=== PATIENT | female | born 1995 | race African-American/Black ===

== ENCOUNTER 2019-04-27 23:40 | Inpatient (IN) | payer BC ==
[~2019-04-27] VITALS: Ht 177.8 cm; Wt 191.9 kg
[2019-04-28] VITALS (8 sets, daily range): BP systolic 78–142; BP diastolic 46–86
--- NOTE | 2019-04-28 00:38 | NUR ---
US at bedside
[2019-04-28 02:51] LABS: HEMATOCRIT 35.2 % (37.0-47.0); HEMOGLOBIN 10.8 gm/dL (12.0-15.0); MCH 21.3 pg (26.0-34.0); MCHC 30.7 g/dL (28.0-37.0); MCV 69.4 fL (80.0-100.0); PLATELET COUNT 345 thou/uL (150-400); RBC 5.07 mil/uL (4.20-5.00); RDW 16.2 % (10.5-14.5); WBC 19.5 thou/uL (4.0-11.0)
[2019-04-28 02:58] LABS: CALCIUM 8.9 mg/dL (8.5-10.1); CREATININE 1.2 mg/dL (0.6-1.0); POTASSIUM 4.6 mmol/L (3.5-5.1)
[2019-04-28 03:59] LABS: ABSOLUTE NEUTROPHILS 18.5 thou/uL (1.4-8.2); ANISOCYTOSIS 2+; HYPOCHROMASIA 2+; MICROCYTES 2+; POLYCHROMASIA 1+
[2019-04-28 04:00] LABS: PLATELET ESTIMATE NORMAL
--- NOTE | 2019-04-28 06:26 | NUR ---
PATIENT IS A NEW ADMISSION TO THE UNIT THIS SHIFT. SHE ARRIVED VIA WHEELCHAIR FROM THE ER AND WAS ABLE TO AMBULATE TO RESTROOM AND BED WITHOUT INCIDENT. PATIENT IS COMPLETELY ORIENTED AND ABLE TO PARTICIPATE IN ADMISSION AND CALL APPROPRIATELY FOR NEEDS. NURSE TO COMPLETE ADMISSION AND INITIATE CARE PLAN.
--- NOTE | 2019-04-28 14:48 | NUR ---
PT ADMITTED RELATED TO RLE CELLULITIS/EDEMA. CM REVIEWED CHART AND SPOKE WITH CARE TEAM. CM MET WITH PT AND MOTHER AT BEDSIDE THIS DAY. PT IS A&O X4. CM ROLE INTRODUCED. PT INDICATED SHE LIVES IN A HOUSE WITH HER PARENTS WITH NO STEPS TO ENTER AND A COUPLET STEPS INSIDE. PT INDICATED SHE HAD BEEN INDEPENDENT WITH GAIT AND [employer]. PT INDICATED SHE HAS [employer] INSURANCE. CM INDICATED THAT WE HAVE PT LISTED PATIENT PAY. INSURANCE WAS RUN AND IT SHOWS PT INNACTIVE. CN NOTIFIED PT AND PROVIDED PRINT OUTS. CM TO FOLLOW INDICATED WITH THOMAS BERRY.
[2019-04-28 15:21] LABS: URINE BILIRUBIN NEGATIVE (Negative); URINE BLOOD TRACE (Negative); URINE CLARITY CLEAR; URINE COLOR YELLOW; URINE GLUCOSE-RANDOM* NEGATIVE (Negative); URINE KETONES NEGATIVE (Negative); URINE LEUKOCYTES-REFLEX 1+ (Negative); URINE NITRITE-REFLEX NEGATIVE (Negative); URINE PROTEIN (DIPSTICK) NEGATIVE (Negative); URINE SPECIFIC GRAVITY <= 1.005 (1.005-1.035)
[2019-04-28 15:31] LABS: BACTERIA-REFLEX >30 Many /HPF (None Seen); CASTS None Seen /LPF (None Seen); CRYSTALS None Seen /LPF (None Seen); SQUAMOUS 0-3 Few /LPF (0-3); URINE RBC 0-2 Rare /HPF (0-2); URINE WBC-REFLEX 0-5 Rare /HPF (0-5)
--- NOTE | 2019-04-28 18:15 | NUR ---
PT STABLE THROUGHOUT SHIFT. PT C/O PAIN IN LE'S AND HEADACHE, TYLENOL RELIVED LE PAIN HOWEVER HEADACHE INTENSITY INCREASED. OBTAINED ORDER FOR HYDROCODONE WHICH OFFERED SOME WADE RELIEF. PT UP INDEPENDENTLY. FAMILY AT BEDSIDE.
--- NOTE | 2019-04-29 04:26 | NUR ---
progress pt a/o x4 reports pain of a 7 to right le, taking hydrocodone with effect pt slept most of shift. right leg has 4 plus pitting edema and is hot to touch, left leg has 2 to 3 plus edema with skin warm. vss, pt lungs clear on room air, iv to rf intact with ivf's infusing as ordered and iv antibiotics administered as ordered. pt up ad margie voiding qs, repositions self in bed slept most of shift prone but reported she was comfortable. continue to monitor.
[2019-04-29 05:47] LABS: BASOPHILS 0.3 % (0.0-2.0); HEMATOCRIT 30.7 % (37.0-47.0); HEMOGLOBIN 9.6 gm/dL (12.0-15.0); LYMPHOCYTES 6.5 % (24.0-44.0); MCH 21.5 pg (26.0-34.0); MCHC 31.2 g/dL (28.0-37.0); MONOCYTES 3.2 % (1.0-8.0); PLATELET COUNT 285 thou/uL (150-400); RBC 4.45 mil/uL (4.20-5.00); RDW 16.6 % (10.5-14.5); WBC 15.6 thou/uL (4.0-11.0)
[2019-04-29 05:58] LABS: CALCIUM 8.4 mg/dL (8.5-10.1); MAGNESIUM 1.5 mg/dL (1.8-2.4); POTASSIUM 3.5 mmol/L (3.5-5.1)
[2019-04-29 08:00] VITALS: BP 133/69
--- NOTE | 2019-04-29 11:31 | NUR ---
TOWARDS POC PT A/O X4, VSS. PT COMFORTABLY SITTING ON HER BED. NO CONCERNS VOICED. WILL CONTINUE TO MONITOR.
--- NOTE | 2019-04-29 11:37 | NUR ---
Assess due to RD consult received, pt with class III extreme obesity, BMI of 60.7 and admitted with lower extremity cellulitis. Chronic hx lymphedema and currently with 4+ pitting edema right leg and 2-3+ left leg. On regular diet, states appetite only fair but more receptive to know can order from alternative menu. Discussed high protein choices and encouraged lower Na options. Pt denied need for any nutrition education or materials. Low nutrition risk
--- NOTE | 2019-04-29 13:56 | NUR ---
ORDERS FOR EVAL AND TREAT. Pt UP AD PAULY IN ROOM UPON ARRIVAL. SPOKE WITH Pt WHO STATES SHE IS MOVING AROUND FINE ALTHOUGH A LITTLE SORE. DECLINING A FORMAL P.T. EVAL BUT APPEARS TO BE MOVING AROUND SAFELY.
[2019-04-29 14:40] VITALS: BP 128/53
[2019-04-29 19:40] VITALS: BP 121/70
[2019-04-30 04:21] VITALS: BP 146/69
[2019-04-30 05:51] LABS: ABSOLUTE NEUTROPHILS 12.4 thou/uL (1.4-8.2); BASOPHILS 0.1 % (0.0-2.0); EOSINOPHILS 0.1 % (0.0-3.0); HEMATOCRIT 27.8 % (37.0-47.0); HEMOGLOBIN 8.7 gm/dL (12.0-15.0); LYMPHOCYTES 8.8 % (24.0-44.0); MCH 21.5 pg (26.0-34.0); MCHC 31.2 g/dL (28.0-37.0); MCV 68.9 fL (80.0-100.0); MONOCYTES 4.5 % (1.0-8.0); PLATELET COUNT 290 thou/uL (150-400); POLYS 86.5 % (36.0-66.0); RBC 4.04 mil/uL (4.20-5.00); RDW 16.8 % (10.5-14.5); WBC 14.3 thou/uL (4.0-11.0)
[2019-04-30 05:57] LABS: CALCIUM 8.4 mg/dL (8.5-10.1); CREATININE 0.9 mg/dL (0.6-1.0); MAGNESIUM 1.7 mg/dL (1.8-2.4); POTASSIUM 3.3 mmol/L (3.5-5.1)
[2019-04-30 07:51] VITALS: BP 119/73
--- NOTE | 2019-04-30 08:34 | NUR ---
PROGRESS PT A/O X4 UP AD PAULY, RIGHT LEG WRAPPED WITH LYMPHEDEMA WRAPS, STILL HOT TO TOUCH AND EDEMA STILL PRESENT. VSS EXCEPT FOR LOW GRADE TEMP 100.7 TYLENOL GIVEN FOR FEVER PT REPORTED HEADACHE AND NECK PAIN AND HYDROCODONE GIVEN WITH EFFECT IV ANTIBIOTICS CONTINUE.
[2019-04-30 13:51] VITALS: BP 124/82
--- NOTE | 2019-04-30 17:07 | NUR ---
CARE TEAM INDIATED THAT PT WILL LIKELY DC HOME TOMORROW Friday05/01/19 WITH ORAL ABX. NO OTHER CM INTEREVENTION INDICATED. CASE CLOSED.
--- NOTE | 2019-04-30 18:18 | NUR ---
PT STABLE THROUGHOUT SHIFT. PT HAD NO C/O NV. PAIN ADDRESSED WITH MEDICATION. PT UP TO CHAIR FOR MAJORITY OF SHIFT. FAMILY AT BEDSIDE.
[2019-04-30 21:20] VITALS: BP 128/65
[2019-05-01 04:20] VITALS: BP 101/55
--- NOTE | 2019-05-01 07:55 | NUR ---
Assumed care at 1845. Pt resting in bed. AOX4. VSS. Denies pain and N/V. No identified needs at the moment. Will continue to monitor.
[2019-05-01 08:34] VITALS: BP 136/76
[2019-05-01 15:43] VITALS: BP 127/68
--- NOTE | 2019-05-01 19:15 | NUR ---
PT VITAL SIGNS STABLE THROUGHOUT SHIFT. PT HAD SLIGHT HEADACHE WHICH WAS RESOLVED WITH ACETAMINOPHEN. PT HAD SHOWER WHICH SHE TOLERATED WELL. ANTICIPATE DISCHARGE TOMORROW.
[2019-05-01 19:54] VITALS: BP 130/72
[2019-05-02 03:54] VITALS: BP 119/75
[2019-05-02 04:35] VITALS: BP 153/75
[2019-05-02 08:12] VITALS: BP 122/76
[2019-05-02] MEDS ORDERED: AUGMENTIN 875-1 EACH PO (10:55)
[2019-05-02] MEDS ORDERED: NORCO 5-325 TA1 EAC1 PO (10:55)
[2019-05-02 11:09] VITALS: BP 122/76
--- NOTE | 2019-05-02 14:38 | NUR ---
PT STABLE THROUGHOUT SHIFT. PT DISCHARGED HOME. GIVEN RX AND DC INSTRUCTIONS. PT LEFT UNIT VIA WHEELCHAIR TO PRIVATE VEHICLE.
== END 2019-05-02 16:52 | disposition home or self-care (01) | DRG 872 ==
LOC: ER 23:40 → EROBS 04-28 03:09 → 4W 04-28 03:09
PROVIDERS: Emergency Medicine; ADMIT Internal Medicine
DX: A41.9 Sepsis, unspecified organism (principal); L03.115 Cellulitis of right lower limb; Z68.44 Body mass index [BMI] 60.0-69.9, adult; I89.0 Lymphedema, not elsewhere classified; E66.01 Morbid (severe) obesity due to excess calories; E83.42 Hypomagnesemia
CPT/HCPCS: 10040